=== PATIENT | female | born 1960 | race Caucasian/White ===

== ENCOUNTER → 2022-09-12 | Outpatient (CLI) | payer BC ==
[~2022-09-12] MED LIST: ECOT81TA5 PO; HYDR12.55 PO; LOSA100T45 PO; METO1TAB7 PO; OMEG10002 PO; OZEM2INJ SC; ROSU5TAB5 PO; VITMTA PO
== END ==
LOC: M LABSMTC 09:41
PROVIDERS: ATTEND Anesthesiology
DX: Z01.812 Encounter for preprocedural laboratory examination (principal); Z11.52 Encounter for screening for COVID-19

== ENCOUNTER 2022-09-15 09:36 | Day surgery (SDC) | payer BC ==
[~2022-09-15] VITALS: Ht 152.4 cm; Wt 108.8 kg
[~2022-09-15 09:36] MED LIST changes: +NS 1,000 ML IV ONE
[2022-09-15] MEDS ORDERED: propofoL 200 MG/20 ML VIAL As Ordered ONE (11:16)
[2022-09-15] MEDS ORDERED: LIDOCAINE 2% 100MG/5ML SDV (FOR ANES.) As Ordered ONE (11:16)
[2022-09-15 11:42] VITALS: BP 137/69
== END 2022-09-15 11:47 | disposition home or self-care (01) ==
LOC: M OPP 09:36
PROVIDERS: ATTEND Internal Medicine Gastroenterology
DX: Z12.11 Encounter for screening for malignant neoplasm of colon (principal); Z86.010 Personal history of colon polyps; Z83.71 Family history of colonic polyps; K64.0 First degree hemorrhoids; K57.30 Diverticulosis of large intestine without perforation or abscess without bleeding; Z79.02 Long term (current) use of antithrombotics/antiplatelets; Z79.82 Long term (current) use of aspirin; Z79.84 Long term (current) use of oral hypoglycemic drugs; Z79.899 Other long term (current) drug therapy; I10 Essential (primary) hypertension; N20.0 Calculus of kidney; Z85.42 Personal history of malignant neoplasm of other parts of uterus